=== PATIENT | male | born 1990 | race African-American/Black ===

== ENCOUNTER 2017-01-03 22:50 | Emergency (ER) | payer SELFPAY ==
[~2017-01-03] VITALS: Ht 180.3 cm; Wt 67.4 kg
[2017-01-03 23:31] LABS: HEMATOCRIT 47.6 % (38.0-50.0); MCH 32.2 PG (29.0-34.0); MCHC 35.3 G/DL (30.0-36.0); MCV 91.4 FL (86-99); MEAN PLAT.VOLUME 9.4 uM^3 (9.0-12.4); PLATELET COUNT 267 K/uL (156-360); RBC DIS.WIDTH-CV 11.5 % (11.8-14.6); RBC DIS.WIDTH-SD 38.8 % (39-53); RED BLOOD COUNT 5.21 M/uL (4.00-5.50); WHITE BLOOD COUNT 10.8 K/uL (4.1-10.2)
[2017-01-03 23:41] LABS: CHLORIDE 102 mEq/L (99-109); POTASSIUM 3.7 mEq/L (3.7-5.4); SODIUM 140 mEq/L (136-147)
[2017-01-03 23:43] LABS: GLUCOSE 91 mg/dL (70-99)
[2017-01-03 23:44] LABS: ANION GAP 12 MEQ/L (2-14)
[2017-01-03 23:45] LABS: TOTAL BILIRUBIN 0.4 mg/dL (0.0-1.0)
[2017-01-03 23:47] LABS: ALKALINE PHOSPHATASE 48 IU/L (3-129)
[2017-01-03 23:48] LABS: UREA NITROGEN (BUN) 14 mg/dL (9-23)
[2017-01-03 23:50] LABS: GFR ESTIMATE (CALCULATED) > 59 mL/min/
[2017-01-04 00:14] LABS: ADD MIUA? YES; BILIRUBIN NEGATIVE; BLOOD NEGATIVE; COLOR YELLOW ((YELLOW)); GLUCOSE (STRIP) NEGATIVE; KETONES NEGATIVE; LEUKOCYTES NEGATIVE; NITRITE NEGATIVE; PROTEIN (STRIP) NEGATIVE; SPECIFIC GRAVITY 1.011 (1.000-1.030); UROBILINOGEN 0.2 MG/DL (0.2-1.0)
[2017-01-04 00:23] LABS: BACTERIA RARE /HPF; EPITHELIAL CELLS NONE SEEN /HPF; MUCUS NONE SEEN /LPF; RED BLOOD CELLS 0-5 /HPF (0-5); UCUL ADDED? NO; WHITE BLOOD CELLS 0-5 /HPF (0-5)
[2017-01-04] MEDS ORDERED: OMEPRAZOLE40 M1 PO (00:43)
[2017-01-04 01:01] VITALS: BP 138/85
== END 2017-01-04 01:02 | disposition home or self-care (01) ==
LOC: EME 22:50
DX: R10.13 Epigastric pain (principal)
CPT/HCPCS: 80053; 81003; 85027; 99281; 99284